=== PATIENT | male | born 1950 | race Caucasian/White ===

== ENCOUNTER → 2017-06-20 | Outpatient (CLI) | payer OTHER | LOC: FIMAGING 12:44 | PROVIDERS: ATTEND Internal Medicine | DX: J98.4 Other disorders of lung (principal); R63.4 Abnormal weight loss; B20 Human immunodeficiency virus [HIV] disease ==

== ENCOUNTER → 2017-06-22 | Outpatient (CLI) | payer OTHER | LOC: FIMAGING 10:37 | PROVIDERS: ATTEND Internal Medicine | DX: R91.1 Solitary pulmonary nodule (principal); F17.290 Nicotine dependence, other tobacco product, uncomplicated; B20 Human immunodeficiency virus [HIV] disease ==

== ENCOUNTER 2017-06-29 06:53 | Day surgery (SDC) | payer OTHER ==
[2017-06-29] MEDS ORDERED: HEPARIN 10,000 UNIT/10 ML MDV IVP PRN (08:02)
[2017-06-29] MEDS ORDERED: fentaNYL 100 MCG/2 ML INJ IVP PRN (08:02)
[2017-06-29] MEDS ORDERED: ALTEPLASE 2 MG VIAL IVP PRN (08:02)
[2017-06-29] MEDS ORDERED: NALOXONE HCL 0.4 MG/ML INJ IVP PRN (08:02)
[2017-06-29] MEDS ORDERED: MEPERIDINE 25 MG/ML SYR IVP PRN (08:02)
[2017-06-29] MEDS ORDERED: GLUCAGON HCL 1 MG VIAL IVP PRN (08:02)
[2017-06-29] MEDS ORDERED: FLUMAZENIL 0.5 MG/5 ML MDV IVP PRN (08:02)
[2017-06-29] MEDS ORDERED: MIDAZOLAM 2 MG/2 ML VIAL IVP PRN (08:02)
[2017-06-29] MEDS ORDERED: PROTAMINE SULFATE 50 MG/5 ML VIAL IVP PRN (08:02)
[2017-06-29 08:06] VITALS: PULSE 56
[2017-06-29 08:13] LABS: INR 1.14 (0.83-1.16); PROTIME(PATIENT) 14.5 SEC (12.0-15.0)
[2017-06-29 08:14] VITALS: TEMP 97.2
[2017-06-29 08:14] LABS: APTT 29.8 SEC (23.0-38.0)
[2017-06-29] MEDS ORDERED: NS 1,000 ML IV SCH (08:15)
[2017-06-29] MEDS ORDERED: NALOXONE HCL 0.4 MG/ML INJ ONE (08:30)
[2017-06-29] MEDS ORDERED: FLUMAZENIL 0.5 MG/5 ML MDV IVP ONE (08:30)
[2017-06-29] MEDS ORDERED: fentaNYL 100 MCG/2 ML INJ ONE (08:31)
[2017-06-29] MEDS ORDERED: MIDAZOLAM 2 MG/2 ML VIAL ONE (08:31)
--- NOTE | 2017-06-29 09:14 | PDGENHP ---
History & Physical Chief Complaint: RLL PULMONARY NODULE History of Present Illness: RLL PULM NODULE Pertinent Past, Social, Family History: HIV Relevant Physical Exam: CLEAR LUNGS, RRR Cardiorespiratory Assessment: RRR, CLEAR LUNGS
--- NOTE | 2017-06-29 09:15 | PDPROPOC ---
Sedation Plan of Care Sedation Plan of Care: vital signs stable, mental status noted, patient educated of risks, benefits, alternatives, patient can tolerate sedation ASA Classification: ASA 1 Planned drugs: fentanyl, midazolam Mallampati Score: Class 1 Mallampati Reference Image: Patient passed 3-3-2 rule?: Yes
--- NOTE | 2017-06-29 10:06 | PDRADPN ---
Radiology Procedure Note Date of Procedure: 06/29/17 Radiologist: Jose Antonio Turner Anesthesia: IV Sedation Pre-op Diagnosis: RLL LUNG NODULE Post-op Diagnosis: RLL LUNG NODULE Indication: SUSPECT LUNG CARCINOMA Procedure: CT GUIDED RLL LUNG BX Inf/Abcess present in the surg proc area at time of surgery?: No Depth: Organ Space EBL: Minimal Complications: NO PTX Specimen(s): 3 RLL LUNG BX
[2017-06-29 12:48] VITALS: BP 162/98; RESP 16; O2SAT 96
== END 2017-06-29 13:44 | disposition home or self-care (01) ==
LOC: FIMAGING 06:53
PROVIDERS: ATTEND Internal Medicine
PROC: 0BBF3ZX Excision of Right Lower Lung Lobe, Percutaneous Approach, Diagnostic (ICD-10-PCS; principal; 2017-06-29 10:15)
DX: C34.91 Malignant neoplasm of unspecified part of right bronchus or lung (principal)
CPT/HCPCS: J2250; J2310; J3010

== ENCOUNTER → 2017-07-13 | Outpatient (CLI) | payer OTHER | LOC: BHFA 13:00 | PROVIDERS: ATTEND Internal Medicine Cardiovascular Disease | DX: Z01.811 Encounter for preprocedural respiratory examination (principal); C34.90 Malignant neoplasm of unspecified part of unspecified bronchus or lung ==

== ENCOUNTER 2017-07-25 08:21 | Inpatient (IN) | payer OTHER ==
[2017-07-25] MEDS ORDERED: LIDOCAINE 1% 2 ML INJ ONE (08:30)
[2017-07-25] MEDS ORDERED: ceFAZolin 2 GM/DEXTROSE 100 ML IV ONE (08:41)
[2017-07-25] MEDS ORDERED: LR 1,000 ML IV ONE (08:42)
[2017-07-25] MEDS ORDERED: LIDOCAINE 1% 2 ML INJ ID PRN (08:42)
--- NOTE | 2017-07-25 09:24 | PDANEPAE ---
ANE History of Present Illness right thoracoscopy ANE Past Medical History - Cardiovascular History Hx Hypertension: No Hx Arrhythmias: No Hx Chest Pain: No Hx Coronary Artery / Peripheral Vascular Disease: No Hx CHF / Valvular Disease: No Hx Palpitations: No Cardiovascular History Comment: slightly elevated cholesterol - Pulmonary History Hx COPD: No Hx Asthma/Reactive Airway Disease: No Hx Recent Upper Respiratory Infection: No Hx Oxygen in Use at Home: No Hx Sleep Apnea: No Sleep Apnea Screening Result - Last Documented: Negative Pulmonary History Comment: chronic cough - Neurologic History Hx Cerebrovascular Accident: No Hx Seizures: No Hx Dementia: No - Endocrine History Hx Diabetes: No Obesity: no - Renal History Hx Renal Disorders: No - Liver History Hx Hepatic Disorders: No - Neurological & Psychiatric Hx Hx Neurological and Psychiatric Disorders: No - Cancer History Hx Cancer: Yes Cancer History Comment: new dx lung cancer - Congenital Disorder History Hx Congenital Disorders: No - GI History Hx Gastrointestinal Disorders: No - Other Health History Other Health History: HIV positive - Chronic Pain History Chronic Pain: No - Surgical History Prior Surgeries: R HIP 10/10/2014. COLONOSCOPY. hernia repair 18 years ago ANE Review of Systems Review of Systems: - Exercise capacity METS (RN): 5 METS ANE Patient History - Allergies Allergies/Adverse Reactions: No Known Allergies Allergy (Unverified 10/10/14 13:21) - Home Medications Home medications: home medication list seen and reviewed Home Medications: Cholecalciferol Vit D3 [Vitamin D3 (*)] 1,000 units PO DAILY 10/10/14 [Last Taken 07/20/17] Herbals/Supplements -Info Only 1 ea PO DAILY 10/10/14 [Last Taken 07/20/17] Multivitamins [Multivitamin (*)] 1 each PO DAILY 10/10/14 [Last Taken 07/20/17] Dolutegravir Sodium [Tivicay] 50 mg PO DAILY 06/28/17 [Last Taken 06/29/17 05:30 ] Emtricitabine/Tenofov Alafenam [Descovy 200-25 mg Tablet] 200 mg PO DAILY [Last Taken 07/25/17] Aspirin [Aspirin 81mg (*)] 81 mg PO DAILY 07/22/17 [Last Taken 07/22/17] Hydrocodone/APAP 5/325 [[place] 5/325 (*)] 1 each PO DAILY PRN 07/22/17 [Last Taken 06/25/17] valACYclovir [Valtrex (*)] 500 mg PO DAILY PRN 07/22/17 [Last Taken 07/05/17] - NPO status NPO Since - Liquids (Date): 07/24/17 NPO Since - Liquids (Time): 20:02 NPO Since - Solids (Date): 07/24/17 NPO Since - Solids (Time): 18:30 - Anes Hx Anes Hx: no prior problems - Smoking Hx Smoking Status: Former smoker - Family Anes Hx Family Hx Anesthesia Complications: NONE ANE Labs/Vital Signs - Vital Signs Blood Pressure: 153/84 Heart Rate: 53 Respiratory Rate: 16 O2 Sat (%): 96 Height: 180.34 cm Weight: 72.575 kg ANE Physical Exam - Airway Neck exam: FROM Mallampati Score: Class 1 Mouth exam: normal dental/mouth exam - Pulmonary Pulmonary: no respiratory distress - Cardiovascular Cardiovascular: regular rate and rhythym - ASA Status ASA Status: III ANE Anesthesia Plan Anesthesia Plan: general endotracheal anesthesia Specialized Airway: double lumen tube
[2017-07-25] MEDS ORDERED: THROMBIN (BOVINE) 20,000 UNIT SPRAY TP ONE (09:34)
[2017-07-25] MEDS ORDERED: BUPIVACAINE/EPI 0.5% 30 ML SDV ONE (09:34)
[2017-07-25] MEDS ORDERED: BUPIVACAINE 0.5% 30 ML SDV ONE (09:34)
[2017-07-25] MEDS ORDERED: THROMBIN(HUM PLAS)/FIBRINOG/CA 5 ML VIAL TP ONE (09:34)
[2017-07-25] MEDS ORDERED: MIDAZOLAM 2 MG/2 ML VIAL IVP ONE (09:36)
[2017-07-25] MEDS ORDERED: MIDAZOLAM 2 MG/2 ML VIAL ONE (09:38)
[2017-07-25] MEDS ORDERED: fentaNYL 250 MCG/5 ML INJ ONE (09:46)
[2017-07-25] MEDS ORDERED: PROPOFOL 200 MG/20 ML VIAL ONE ×2 (09:46→12:38)
[2017-07-25] MEDS ORDERED: LIDOCAINE 2% 5 ML SDV ONE (09:48)
[2017-07-25] MEDS ORDERED: ROCURONIUM 100 MG/10 ML VIAL ONE (09:49)
[2017-07-25] MEDS ORDERED: HYDROmorphONE/DILAUDID 2 MG/ML INJ ONE (10:54)
[2017-07-25] MEDS ORDERED: epHEDrine SULFATE 10 MG/ML SYR ONE ×2 (12:26)
[2017-07-25] MEDS ORDERED: ONDANSETRON 4 MG/2 ML VIAL IVP PRN ×2 (12:43→13:03)
[2017-07-25] MEDS ORDERED: NALOXONE HCL 0.4 MG/ML INJ IVP PRN ×2 (12:47→13:03)
[2017-07-25] MEDS ORDERED: valACYclovir 500 MG TAB PO PRN (12:48)
--- NOTE | 2017-07-25 12:52 | POSTOPPROG ---
Post Op Note Date of Operation: 07/25/17 Surgeon: Carl Donovan Ob/Gyn Doctor: Cora Means Anesthesiologist: Jag Brewer Anesthesia: GET(General Endotracheal) Pre-op Diagnosis: RLL lung cancer Post-op Diagnosis: same Procedure: R VATS c RLL lobectomy Findings: tumor in specimen. no gross signs of spread. Inf/Abcess present in the surg proc area at time of surgery?: No EBL: 50-100 Complications: none Drains: Other (1 - 28 Fr Chest tube) Specimen(s): RLL to pathology
[2017-07-25] MEDS ORDERED: HYDROCODONE/APAP 5/325 TAB PO PRN (13:03)
[2017-07-25] MEDS ORDERED: OXYCODONE/APAP 5/325 TAB PO PRN (13:03)
[2017-07-25] MEDS ORDERED: PHENYLEPHRINE HCL 100 MCG/ML SYR IVP PRN (13:03)
[2017-07-25] MEDS ORDERED: fentaNYL 100 MCG/2 ML INJ IVP PRN (13:03)
[2017-07-25] MEDS ORDERED: NS 500 ML IV PRN (13:03)
[2017-07-25] MEDS ORDERED: HYDROmorphONE/DILAUDID 1 MG/ML INJ IVP PRN (13:03)
[2017-07-25] MEDS ORDERED: ALBUTEROL 3 ML DEYVIAL IH PRN (13:03)
[2017-07-25] MEDS ORDERED: ACETAMINOPHEN 500 MG TAB PO PRN (13:03)
[2017-07-25] MEDS ORDERED: epHEDrine SULFATE 10 MG/ML SYR IVP PRN (13:03)
[2017-07-25] MEDS ORDERED: PROMETHAZINE HCL 25 MG/ML INJ IVP PRN (13:03)
--- NOTE | 2017-07-25 13:03 | POSTANESTH ---
Post Anesthetic Evaluation Cardiovascular Status: Normal, Stable Respiratory Status: Normal, Stable Level of Consciousness/Mental Status: Can Participate in Eval Pain Control: Adequate, Prn Tx Ordered Nausea/Vomiting Control: Adequate, Prn Tx Ordered Complications Possibly Related to Anesthesia: None Noted
[2017-07-25] MEDS ORDERED: HYDROmorphone HCL/NS/PF 0.4 MG/2 ML SYR IVP PRN (13:14)
[2017-07-25] MEDS: BUPIVACAINE 0.5% 30 ML SDV MISC SCH ×3 (15:31→22:10)
[2017-07-25] MEDS: HYDROmorphONE/DILAUDID 6 MG/30 ML PCA IV PRN (15:32)
[2017-07-25] MEDS: NS 1,000 ML IV SCH ×2 (15:33→23:00)
[2017-07-25] MEDS: KETOROLAC 15 MG/1 ML SDV IVP SCH (18:13)
--- NOTE | 2017-07-25 21:20 | SOAPPROG ---
SOAP Progress Note Assessment/Plan: Assessment: sp rt lower lobectomy/ no air leak, minimal drainage, afebrile/ ambulating Plan:continue ct drainage 07/25/17 21:18 Objective: Vital Signs Temp Pulse Resp BP Pulse Ox 37.1 C 68 16 126/71 H 99 07/25/17 20:00 07/25/17 20:00 07/25/17 20:00 07/25/17 20:00 07/25/17 20:00 07/24/17 07/25/17 07/26/17 05:59 05:59 05:59 Intake Total 2430.2 Output Total 340 Balance 2090.2 ICD10 Worksheet Patient Problems: Problems Problem Status Onset Femoral neck fracture Acute
[2017-07-25] MEDS: DOCUSATE SODIUM 100 MG CAP PO SCH (22:10)
[2017-07-26] MEDS: KETOROLAC 15 MG/1 ML SDV IVP SCH ×2 (00:05→06:07)
[2017-07-26] MEDS: BUPIVACAINE 0.5% 30 ML SDV MISC SCH ×6 (02:00→21:55)
[2017-07-26] MEDS: HYDROmorphONE/DILAUDID 6 MG/30 ML PCA IV PRN (05:45)
[2017-07-26 05:58] LABS: HEMATOCRIT 37.6 % (40.0-51.0); HEMOGLOBIN 12.8 g/dL (13.7-17.5)
[2017-07-26 06:06] LABS: ANION GAP 6 mEq/L (8-16); CALCIUM 7.7 mg/dL (8.5-10.4); CARBON DIOXIDE 23 mEq/l (22-31); CHLORIDE 110 mEq/L (97-110); GLOMERULAR FILTRATION RATE > 60; GLUCOSE 99 mg/dL (70-100); POTASSIUM 4.4 mEq/L (3.5-5.2); SODIUM 139 mEq/L (134-144)
[2017-07-26] MEDS: NS 1,000 ML IV SCH (07:53)
[2017-07-26] MEDS: DOCUSATE SODIUM 100 MG CAP PO SCH ×2 (08:03→20:22)
[2017-07-26] MEDS: ASPIRIN 81 MG CHEWABLE TAB PO SCH (08:03)
[2017-07-26] MEDS: DESCOVY PO SCH (08:03)
[2017-07-26] MEDS: (Dolutegravir Sodium [Tivicay] 50 MG) PO SCH (08:04)
[2017-07-26] MEDS ORDERED: NON-FORMULARY NEW DRUG (Dolutegravir Sodium [Tivicay] 50 MG) PO SCH (09:00)
[2017-07-26] MEDS ORDERED: [UNRECOGNIZED DRUG - OTHER] PO SCH (09:00)
[2017-07-26] MEDS ORDERED: KETOROLAC 15 MG/1 ML SDV IVP PRN (09:21)
[2017-07-26] MEDS: OXYCODONE/APAP 5/325 TAB PO PRN ×2 (10:38→12:38)
--- NOTE | 2017-07-26 10:42 | SOAPPROG ---
SOAP Progress Note Assessment/Plan: Assessment/Plan: 66 Y M s/p R VATS c RLL lobectomy for needle biopsy proven lung cancer. Hx HIV, well controlled. POD#1. Doing remarkably well. Seen with Dr. Donovan. No air leak. CT drainage fairly low. Take off suction. Minimal pain. Change toradol to PRN with a max of 3 days due to possible interaction c HIV meds. D/c yeboah catheter. Transfer to med surg status. S: hardly any pain. no sob. has been walking in hallways O: alert, nad mmm, no jaundice ctab rrr abd soft no air leak drainage serosanguinous 07/26/17 10:40 Objective: Vital Signs Temp Pulse Resp BP Pulse Ox 36.8 C 59 L 24 H 120/66 97 07/26/17 04:00 07/26/17 10:00 07/26/17 10:00 07/26/17 08:00 07/26/17 10:00 Laboratory Results 07/26/17 05:00 07/26/17 05:00 07/25/17 07/26/17 07/27/17 05:59 05:59 05:59 Intake Total 4174.3 Output Total 890 Balance 3284.3 ICD10 Worksheet Patient Problems: Problems Problem Status Onset Femoral neck fracture Acute
--- NOTE | 2017-07-26 14:54 | PCMIDPN ---
Assessment/Plan: 1. Adenocarcinoma of the lung, status post right lower lobectomy: Sincerely appreciate Dr. Donovan assistance, and surgical assistance! Patient is doing very well and will be moved to the floor today 2. HIV: Stable on Descovy and Dolutegravir. No new recommendations. Will follow peripherally, please feel free to call me with any questions about this patient. Subjective: Paid the patient a social visit today. He is in excellent spirits without complaints. [employer] has been discontinued and he is ambulating without pain. Objective: Vital Signs Afebrile Descovy Dolutegravir Temp Pulse Resp BP Pulse Ox 36.8 C 59 L 24 H 120/66 97 07/26/17 04:00 07/26/17 10:00 07/26/17 10:00 07/26/17 08:00 07/26/17 10:00 Laboratory Results 07/26/17 05:00 07/26/17 05:00 07/25/17 07/26/17 07/27/17 05:59 05:59 05:59 Intake Total 4174.3 2205 Output Total 890 400 Balance 3284.3 1805 - Physical Exam General Appearance: alert, no apparent distress Respiratory: other (Chest tube on the right) Cardiac/Chest: regular rate, rhythm Skin: No rash ICD10 Worksheet Patient Problems: Problems Problem Status Onset Femoral neck fracture Acute
--- NOTE | 2017-07-26 16:20 | ASMTCMCOM ---
CM Note CM Note Notes: 66 year old male admitted for lower lobe lung CA. Had a VATS procedure, R LL lobectomy. He is up and ambulating. to transfer to . May not have discharge needs. Date Signed: 07/26/2017 04:20 PM Electronically Signed By:Claribel Calvert LCSW
[2017-07-26] MEDS: HYDROCODONE/APAP 5/325 TAB PO PRN (20:22)
[2017-07-27] MEDS: BUPIVACAINE 0.5% 30 ML SDV MISC SCH ×5 (01:54→15:29)
[2017-07-27] MEDS: HYDROCODONE/APAP 5/325 TAB PO PRN ×2 (06:06→09:40)
--- NOTE | 2017-07-27 07:24 | SOAPPROG ---
SOAP Progress Note Assessment/Plan: Assessment: sp rt lower lobectomy/ no air leak, minimal drainage, afebrile/ ambulating Plan:continue ct drainage 07/25/17 21:18 07/27/17 07:23 AFEBRILE/ DECREASED CT DRAINAGE/ NO AIR LEAK/ PATH PENDING Objective: Vital Signs Temp Pulse Resp BP Pulse Ox 36.8 C 67 18 180/88 H 94 07/27/17 05:56 07/27/17 05:56 07/27/17 05:56 07/27/17 05:56 07/27/17 05:56 Laboratory Results 07/26/17 05:00 07/26/17 05:00 07/26/17 07/27/17 07/28/17 05:59 05:59 05:59 Intake Total 4174.3 2955 300 Output Total 890 3250 310 Balance 3284.3 -295 -10 ICD10 Worksheet Patient Problems: Problems Problem Status Onset Femoral neck fracture Acute
[2017-07-27] MEDS: (Dolutegravir Sodium [Tivicay] 50 MG) PO SCH (09:38)
[2017-07-27] MEDS: DESCOVY PO SCH (09:38)
[2017-07-27] MEDS: DOCUSATE SODIUM 100 MG CAP PO SCH ×2 (09:40→21:12)
[2017-07-27] MEDS: ASPIRIN 81 MG CHEWABLE TAB PO SCH (09:41)
[2017-07-27] MEDS: ENOXAPARIN 40 MG/0.4 ML SYR SC SCH (09:41)
[2017-07-27] MEDS ORDERED: LACTULOSE 20 GM/30 ML UDCUP PO PRN (10:38)
[2017-07-27] MEDS ORDERED: BISACODYL 10 MG SUPP PR PRN (10:38)
[2017-07-27] MEDS ORDERED: MAGNESIUM HYDROXIDE 30 ML UDCUP PO PRN (10:38)
[2017-07-27] MEDS ORDERED: POLYETHYLENE GLYCOL 3350 17 GM PKT PO PRN (10:38)
[2017-07-27] MEDS: HYDROmorphONE/DILAUDID 2 MG TAB PO PRN ×4 (11:31→21:11)
--- NOTE | 2017-07-27 13:26 | SOAPPROG ---
SOAP Progress Note Assessment/Plan: Assessment/Plan: 66 Y M s/p R VATS c RLL lobectomy for needle biopsy proven lung cancer. Hx HIV, well controlled. POD#2. D/c'ed chest tube. CXR later today and repeat in am. Dispo: home with sister tomorrow. S: dilaudid helping. tired after being so active and visiting with friends yesterday. no sob. O: alert, nad mmm, no jaundice ctab rrr abd soft no air leak drainage serosanguinous 07/27/17 13:25 Objective: Vital Signs Temp Pulse Resp BP Pulse Ox 36.6 C 62 17 162/93 H 94 07/27/17 07:43 07/27/17 07:43 07/27/17 07:43 07/27/17 07:43 07/27/17 07:43 Laboratory Results 07/26/17 05:00 07/26/17 05:00 07/26/17 07/27/17 07/28/17 05:59 05:59 05:59 Intake Total 4174.3 2955 800 Output Total 890 3250 1410 Balance 3284.3 -295 -610 ICD10 Worksheet Patient Problems: Problems Problem Status Onset Femoral neck fracture Acute
[2017-07-27] MEDS: SENNOSIDES/DOCUSATE SODIUM TAB PO SCH (21:12)
[2017-07-28] MEDS: BUPIVACAINE 0.5% 30 ML SDV MISC SCH ×4 (00:46→08:19)
[2017-07-28] MEDS: HYDROmorphONE/DILAUDID 2 MG TAB PO PRN ×2 (00:59→04:57)
[2017-07-28 08:12] VITALS: BP 156/81; PULSE 61; RESP 17; TEMP 98.7; O2SAT 94
[2017-07-28] MEDS: DOCUSATE SODIUM 100 MG CAP PO SCH (08:14)
[2017-07-28] MEDS: SENNOSIDES/DOCUSATE SODIUM TAB PO SCH (08:14)
[2017-07-28] MEDS: ASPIRIN 81 MG CHEWABLE TAB PO SCH (08:14)
[2017-07-28] MEDS: (Dolutegravir Sodium [Tivicay] 50 MG) PO SCH (08:16)
[2017-07-28] MEDS: DESCOVY PO SCH (08:16)
[2017-07-28] MEDS: ENOXAPARIN 40 MG/0.4 ML SYR SC SCH (08:18)
--- NOTE | 2017-07-28 09:30 | SOAPPROG ---
SOAP Progress Note Assessment/Plan: Assessment: sp rt lower lobectomy/ no air leak, minimal drainage, afebrile/ ambulating Plan:continue ct drainage 07/25/17 21:18 07/27/17 07:23 AFEBRILE/ DECREASED CT DRAINAGE/ NO AIR LEAK/ PATH PENDING 07/28/17 09:29 WOUND OK AFEBRILE/ BS EQUAL/ CXR OK/ HOME TODAY Objective: Vital Signs Temp Pulse Resp BP Pulse Ox 37.1 C 61 17 156/81 H 94 07/28/17 08:11 07/28/17 08:11 07/28/17 08:11 07/28/17 08:11 07/28/17 08:11 Laboratory Results 07/26/17 05:00 07/26/17 05:00 07/27/17 07/28/17 07/29/17 05:59 05:59 05:59 Intake Total 2955 2100 Output Total 3250 2560 Balance -295 -460 ICD10 Worksheet Patient Problems: Problems Problem Status Onset Femoral neck fracture Acute
--- NOTE | 2017-07-28 10:25 | ASMTCMCOM ---
CM Note CM Note Notes: Pt ready for Dc today. Met with pt to discuss DC needs. Pt's sister in town and they will both stay at a friend's home while she cares for him. Pt lives in [facility]. Submitted pt's name for [employer]. Pt has no other DC needs. Date Signed: 07/28/2017 10:25 AM Electronically Signed By:Ira Figueroa LCSW
--- NOTE | 2017-07-28 11:28 | ASDISCHSUM ---
Discharge Information Plan Status: Medically Cleared to Leave: Discharge Date:07/28/2017 10:33 AM CM D/C Disposition: ADT D/C Disposition:Home, Routine, Self-Care Projected Discharge Date:07/28/2017 10:33 AM Transportation at D/C: Discharge Delay Reason: Follow-Up Date:07/28/2017 10:33 AM Discharge Slot: Final Diagnosis: Placement Information Patient Contact Information Contact Name:DICK Relationship:Sister Address: City: [facility] Phone: State/Zip Code: Email: Financial Information Financial Class: Primary Plan Desc:MEDICARE INPATIENT Primary Plan Number:[id number] Secondary Plan Desc: Secondary Plan Number: Assessment Information [facility] CM Progress Note CM Note CM Note Notes: 66 year old male admitted for lower lobe lung CA. Had a VATS procedure, R LL lobectomy. He is up and ambulating. to transfer to . May not have discharge needs. Date Signed: 07/26/2017 04:20 PM Electronically Signed By:Claribel Calvert LCSW [facility] CM Progress Note CM Note CM Note Notes: Pt ready for Dc today. Met with pt to discuss DC needs. Pt's sister in town and they will both stay at a friend's home while she cares for him. Pt lives in [facility]. Submitted pt's name for [facility] [employer]. Pt has no other DC needs. Date Signed: 07/28/2017 10:25 AM Electronically Signed By:Ira Figueroa LCSW Intervention Information
== END 2017-07-28 10:33 | disposition home or self-care (01) | DRG 165 ==
LOC: F3E 08:21 → F2N 14:46 → UNDODISIN 07-26 06:00 → F1N 07-26 15:05
PROVIDERS: ADMIT Surgery; ATTEND Surgery
PROC: 0BTF4ZZ Resection of Right Lower Lung Lobe, Percutaneous Endoscopic Approach (ICD-10-PCS; principal; 2017-07-25 10:00)
DX: C34.31 Malignant neoplasm of lower lobe, right bronchus or lung (principal); Z87.01 Personal history of pneumonia (recurrent); Z87.442 Personal history of urinary calculi; Z96.649 Presence of unspecified artificial hip joint; F17.210 Nicotine dependence, cigarettes, uncomplicated; Z21 Asymptomatic human immunodeficiency virus [HIV] infection status; E78.5 Hyperlipidemia, unspecified
CPT/HCPCS: J0690; J1170; J1650; J1885; J2250; J2370; J2704; J3010

== ENCOUNTER → 2017-08-01 | Outpatient (CLI) | payer OTHER | LOC: FIMAGING 11:39 | PROVIDERS: ATTEND Physician Assistant | DX: Z90.2 Acquired absence of lung [part of] (principal); R91.8 Other nonspecific abnormal finding of lung field ==

== ENCOUNTER → 2017-08-31 | Outpatient (CLI) | payer OTHER | LOC: FIMAGING 13:04 → EDSTATUS 13:05 | PROVIDERS: ATTEND Surgery | DX: R91.8 Other nonspecific abnormal finding of lung field (principal); Z90.2 Acquired absence of lung [part of] ==

== ENCOUNTER → 2017-10-10 | Outpatient (CLI) | payer OTHER | LOC: FIMAGING 15:30 | PROVIDERS: ATTEND Surgery | DX: R05 Cough (principal); Z90.2 Acquired absence of lung [part of] ==